=== PATIENT | male | born 1935 | race African-American/Black ===

== ENCOUNTER 2021-12-03 17:42 | Emergency (ER) | payer OTHER, MEDICAID ==
[~2021-12-03] VITALS: Ht 180.3 cm; Wt 86.0 kg
[2021-12-03] MEDS ORDERED: LIDOCAINE 5% PATCH TOP SCH (20:30)
[2021-12-03] MEDS ORDERED: ACETAMINOPHEN 325MG TABLET PO ONE (20:30)
[2021-12-03] MEDS ORDERED: ACETAMINOPHEN WITH CODEINE 300/30MG TABLET PO ONE (22:45)
[2021-12-03] MEDS ORDERED: LIDO700A15 TP (23:17)
[2021-12-03] MEDS ORDERED: T3 PO (23:17)
[2021-12-03 23:44] VITALS: BP 149/75
== END 2021-12-03 23:46 | disposition home or self-care (01) ==
LOC: ER 17:42
DX: M54.9 Dorsalgia, unspecified (principal); I67.82 Cerebral ischemia; I10 Essential (primary) hypertension; E78.00 Pure hypercholesterolemia, unspecified; W01.0XXA Fall on same level from slipping, tripping and stumbling without subsequent striking against object, initial encounter; Y93.01 Activity, walking, marching and hiking; Y92.9 Unspecified place or not applicable; Z96.649 Presence of unspecified artificial hip joint
CPT/HCPCS: 72131; 99284